=== PATIENT | male | born 1980 | race Caucasian/White ===

== ENCOUNTER → 2020-07-20 | Outpatient (CLI) | payer OTHER | END | disposition home or self-care (01) | LOC: WOUND 08:49 | PROVIDERS: ATTEND Podiatrist Foot & Ankle Surgery | DX: L97.512 Non-pressure chronic ulcer of other part of right foot with fat layer exposed (principal); I87.8 Other specified disorders of veins; B00.89 Other herpesviral infection; S90.424D Blister (nonthermal), right lesser toe(s), subsequent encounter; X58.XXXD Exposure to other specified factors, subsequent encounter | CPT/HCPCS: 87070; 87102; 87205; 97597; 97598; 99204 ==